=== PATIENT | male | born 1975 | race Caucasian/White ===

== ENCOUNTER 2016-06-23 08:25 | Emergency (ER) | payer BC, OTHER ==
[~2016-06-23 08:25] MED LIST: CYCL-259 PO; LSN/20125 PO; METF500T PO; OMEP20CA59 PO
[2016-06-23 08:42] VITALS: TEMP 36.8; Ht 182.9 cm
[2016-06-23 10:18] VITALS: BP 148/102; PULSE 69; O2SAT 97
--- NOTE | 2016-06-23 10:42 | DIAGNOSTIC IMAGING REPORT ---
LEFT LOWER EXTREMITY VENOUS DOPPLER CLINICAL HISTORY: Left calf hematoma. Discomfort. COMPARISON STUDY: Left lower extremity venous Doppler November 02 2012. TECHNIQUE: Sonography of the deep venous system of the left lower extremity was performed. Compression and augmentation were evaluated. FINDINGS: The left common femoral, superficial femoral and popliteal veins were compressible. Augmentation was normal. Flow was shown within the deep calf vessels. IMPRESSION: No evidence of deep venous thrombus within the left lower extremity. Electronically signed by: Jose Maria Bruno M.D. 06/23/2016 10:41 AM Dictated Date/Time: 06/23/2016 10:40 AM
[2016-06-23] MEDS ORDERED: PRED50TA PO (11:16)
--- NOTE | 2016-06-28 17:57 | EMERGENCY ROOM VISIT NOTE ---
History First contact with patient: 08:47 Chief Complaint: LEG PAIN,LEG INJURY Stated Complaint: BRUISE ON LEG-ODD SENSATION/NUMBNESS History of Present Illness The patient is a 40 year old male who presents to the Emergency Room with complaints of a bruise on his left calf. Patient denies any trauma. No prior history of DVT. 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 He states there is usually a pop when this occurs and he does not recall any such sensation. He did have some tingling into the foot earlier this morning with this has resolved. He is leaving for [place] for 10 days and is concerned about a DVT. He denies any popliteal discomfort or thigh discomfort. Calf is mildly tender. He denies any insect bites or other known source of the bruise. Review of Systems REVIEW OF SYSTEM: HEENT: No dizziness, visual problems, hearing loss, or tinnitus. There is no difficulty swallowing and no oral lesions are present. LYMPH: No adenopathy. PULMONARY: No cough, shortness of breath, sputum production or hemoptysis. CARDIOVASCULAR: No chest pain, palpitations, shortness of breath or peripheral edema. GASTROINTESTINAL: No diarrhea, constipation, nausea, vomiting, or abdominal pain. GENITOURINARY: No dysuria, frequency, urgency or nocturia. NEUROLOGIC: No weakness, muscle tenderness, epilepsy or history of neurological problems. MUSCULOSKELETAL: No history of joint tenderness/swelling. No history of arthritis or arthralgias. SKIN: No rashes or lesions. PSYCHIATRIC: No history of depression or mental illness. ENDOCRINE: No history of thyroid disorders, or abnormal hair growth. Past Medical/Surgical History Medical Problems: (1) Benign hypertension (2) MORBID OBESITY Previous surgeries: Gastric bypass Medical history: Significant for diabetes, obesity, hypertension, and skin problems Family History Significant for diabetes, heart disease, hypertension, and cancer. Father is . Mother is living. Social History Smoking Status: Never Smoker Smokeless Tobacco Use: No Drug Use: none Marital Status: single Housing Status: lives alone Occupation Status: employed Allergies Coded Allergies: No Known Allergies (Unverified , NONE, 06/23/16) Physical Exam Vital Signs Date Time Temp Pulse Resp B/P Pulse Ox O2 Delivery O2 Flow Rate FiO2 06/23/16 10:18 69 18 148/102 97 06/23/16 08:42 36.8 73 18 147/81 97 Room Air Physical Exam Gen.: Well-developed, well-nourished, obese middle-aged white male, in no acute distress. Sitting on a bed. Alert and oriented. Skin:Warm and dry with good turgor. No rashes or lesions. No erythema. 8 cm x 5 cm oval ecchymotic area present over the central proximal gastroc. Palpable varicosities distally. The patient is not diaphoretic. No abrasions. Musculoskeletal: Palpation of the left lower extremity reveals no palpable defect. No discomfort with palpation over the gastroc. No pain in the popliteal fossa. Normal Homans test. Ambulatory with a normal gait. Neurologic: Gross sensation is intact across left lower extremity by soft touch. Peripheral pulses are 2+. Medical Decision & Procedures ER Provider Diagnostic Interpretation: Left lower extremity ultrasound obtained today was read by radiology as negative for DVT. No significant fluid collection. ED Course Patient was educated regarding today's findings. Conservative care measures were discussed. Ultrasound of the left lower extremity was obtained to rule out DVT. This was read by radiology. Patient was reassured that I do not find any evidence for DVT. I'm not sure what caused the ecchymotic area. Likelihood of rupture cutaneous vessel was discussed. He may apply moist heat to the area several times per day to speed healing. Gentle stretching daily. He may travel to [place] as scheduled. Follow-up with his PCP or return to the ED for any other concerns Medical Decision Possibility of insect bite, tick bite, ruptured vessel, simple bruise, coagulation disorder, and DVT were considered among others. Impression Primary Impression: Spontaneous hematoma of lower leg Departure Information Referrals No Doctor, Assigned (PCP) Patient Instructions [facility]
== END 2016-06-23 11:22 | disposition home or self-care (01) ==
LOC: C.EDB 08:27
DX: S80.12XA Contusion of left lower leg, initial encounter (principal); X58.XXXA Exposure to other specified factors, initial encounter; I10 Essential (primary) hypertension; E11.9 Type 2 diabetes mellitus without complications; E66.01 Morbid (severe) obesity due to excess calories; Z86.79 Personal history of other diseases of the circulatory system; Z98.84 Bariatric surgery status; Z83.3 Family history of diabetes mellitus; Z82.49 Family history of ischemic heart disease and other diseases of the circulatory system

== ENCOUNTER → 2016-09-12 | Outpatient (CLI) | payer OTHER ==
[2016-09-12 14:53] LABS: BASO % 0.2 %; EOS % 0.9 %; HEMATOCRIT 43.9 % (42-52); IG% 0.2 %; LYMPH % 20.3 %; MEAN CORPUSCULAR HEMOGLOBIN 28.7 pg (25-34); MEAN CORPUSCULAR HGB CONC 32.6 g/dl (32-36); MEAN PLATELET VOLUME 9.4 fL (7.4-10.4); MONO % 5.2 %; NEUT % 73.2 %; PLATELET COUNT 233 K/uL (130-400); RED BLOOD COUNT 4.99 M/uL (4.7-6.1); WHITE BLOOD COUNT 13.23 K/uL (4.8-10.8)
[2016-09-12 14:54] LABS: BASO ABS # 0.02 K/uL (0-0.2); COMPLETE YES; LYMPH ABS # 2.68 K/uL (1.2-3.4)
[2016-09-12 14:58] LABS: ESTIMATED AVERAGE GLUCOSE 108 mg/dl; HA1C FLAG Normal (Normal)
[2016-09-12 15:41] LABS: ALT/SGPT 30 U/L (12-78); AST/SGOT 22 U/L (15-37); BLOOD UREA NITROGEN 13 mg/dl (7-18); BUN/CREATININE RATIO 19.5 (10-20); CALCIUM 8.5 mg/dl (8.5-10.1); CARBON DIOXIDE 31 mmol/L (21-32); CHLORIDE 106 mmol/L (98-107); CHOLESTEROL 129 mg/dl (0-200); CREATININE 0.69 mg/dl (0.60-1.40); GLUCOSE 103 mg/dl (70-99); SODIUM 139 mmol/L (136-145); TRIGLYCERIDES 73 mg/dl (0-150); VERY LOW DENSITY LIPOPROT CALC 15 mg/dl
[2016-09-12 15:49] LABS: ALB/GLOB RATIO 0.8 (0.9-2); ALKALINE PHOSPHATASE 121 U/L (45-117); FERRITIN 135.5 ng/ml (8.0-388.0); HDL CHOLESTEROL 43 mg/dl; LDL CHOLESTEROL CALCULATED 71 mg/dl; TOTAL IRON BINDING CAPACITY 345 mcg/dl (250-450)
== END | disposition home or self-care (01) ==
LOC: C.LABBC 10:00
PROVIDERS: ATTEND Internal Medicine
DX: E11.9 Type 2 diabetes mellitus without complications (principal)

== ENCOUNTER → 2017-11-26 | Outpatient (CLI) | payer OTHER ==
[2017-11-26 17:13] LABS: BASO % 0.2 %; BASO ABS # 0.03 K/uL (0-0.2); EOS ABS # 0.12 K/uL (0-0.5); HEMOGLOBIN 13.3 g/dL (14.0-18.0); IG# 0.02 K/uL (0.00-0.02); LYMPH % 24.7 %; LYMPH ABS # 3.02 K/uL (1.2-3.4); MEAN CELL VOLUME 86.8 fL (80-100); MEAN CORPUSCULAR HEMOGLOBIN 28.9 pg (25-34); MEAN CORPUSCULAR HGB CONC 33.3 g/dl (32-36); MEAN PLATELET VOLUME 9.7 fL (7.4-10.4); MONO % 6.2 %; MONO ABS # 0.76 K/uL (0.11-0.59); NEUT % 67.7 %; NEUT ABS # 8.27 K/uL (1.4-6.5); PLATELET COUNT 242 K/uL (130-400); RED CELL DISTRIBUTION WIDTH CV 14.1 % (11.5-14.5); WHITE BLOOD COUNT 12.22 K/uL (4.8-10.8)
[2017-11-26 17:49] LABS: ALBUMIN 3.3 gm/dl (3.4-5.0); ALKALINE PHOSPHATASE 134 U/L (45-117); ALT/SGPT 36 U/L (12-78); AST/SGOT 23 U/L (15-37); BLOOD UREA NITROGEN 14 mg/dl (7-18); CALCIUM 8.4 mg/dl (8.5-10.1); CARBON DIOXIDE 25 mmol/L (21-32); CREATININE 0.78 mg/dl (0.60-1.40); GLUCOSE 99 mg/dl (70-99); POTASSIUM 3.9 mmol/L (3.5-5.1); SODIUM 140 mmol/L (136-145); TOTAL PROTEIN 7.4 gm/dl (6.4-8.2)
[2017-11-27 06:06] LABS: HEMOGLOBIN A1C 5.8 % (4.5-5.6)
== END | disposition home or self-care (01) ==
LOC: C.LABBC 14:36
PROVIDERS: ATTEND Physician Assistant Medical
DX: E11.9 Type 2 diabetes mellitus without complications (principal); D72.829 Elevated white blood cell count, unspecified; R53.83 Other fatigue; R39.9 Unspecified symptoms and signs involving the genitourinary system; E53.8 Deficiency of other specified B group vitamins; E55.9 Vitamin D deficiency, unspecified

== ENCOUNTER → 2017-12-17 | Outpatient (CLI) | payer OTHER ==
[2017-12-17 13:03] LABS: BASO % 0.3 %; BASO ABS # 0.03 K/uL (0-0.2); EOS % 1.4 %; EOS ABS # 0.15 K/uL (0-0.5); HEMATOCRIT 41.7 % (42-52); HEMOGLOBIN 14.1 g/dL (14.0-18.0); IG# 0.01 K/uL (0.00-0.02); LYMPH ABS # 3.27 K/uL (1.2-3.4); MEAN CELL VOLUME 87.1 fL (80-100); MEAN CORPUSCULAR HEMOGLOBIN 29.4 pg (25-34); MEAN CORPUSCULAR HGB CONC 33.8 g/dl (32-36); MEAN PLATELET VOLUME 9.6 fL (7.4-10.4); MONO % 5.4 %; MONO ABS # 0.59 K/uL (0.11-0.59); NEUT % 62.8 %; NEUT ABS # 6.86 K/uL (1.4-6.5); PLATELET COUNT 245 K/uL (130-400); RED CELL DISTRIBUTION WIDTH CV 14.1 % (11.5-14.5); RED CELL DISTRIBUTION WIDTH SD 45.1 fL (36.4-46.3); WHITE BLOOD COUNT 10.91 K/uL (4.8-10.8)
== END | disposition home or self-care (01) ==
LOC: C.LABBC 09:20
PROVIDERS: ATTEND Physician Assistant Medical
DX: R39.9 Unspecified symptoms and signs involving the genitourinary system (principal); D72.829 Elevated white blood cell count, unspecified